=== PATIENT | female | born 1955 | race Caucasian/White ===

== ENCOUNTER → 2017-02-20 10:42 | Outpatient (CLI) | payer MEDICARE ==
[2015-10-01 11:32] VITALS: BMI 41.2
[~2017-02-20 10:42] MED LIST: ASPIRIN EC81 M1 PO; ATIVAN1 MG PO; BYSTOLIC5 MG PO; ELIQUIS2.5 MG PO; ESTRACE1 MG PO; FISH OIL 1,0001 CA1 PO; FLAXSEED OIL1000 MG PO; HYDROCODONE-APA1 TAB PO; LEXAPRO20 MG PO; MELATONIN 3 MG1 TAB PO; NAPROSYN500 MG PO; OYSCO 500+D TAB1 TAB PO; PERCOCET 10/3251 TA1 PO; PREVACID15 MG PO; REQUIP1 MG PO; ROBAXIN500 MG PO; STOOL SOFTENER240 MG PO; SYNTHROID150 MCG PO; ZOCOR20 MG PO
== END | disposition home or self-care (01) ==
LOC: D.MRI 10:42
DX: M87.9 Osteonecrosis, unspecified (principal)

== ENCOUNTER → 2017-05-27 14:21 | Outpatient (CLI) | payer MEDICARE ==
[2015-10-01 11:32] VITALS: BMI 41.2
== END | disposition home or self-care (01) ==
LOC: D.MRI 14:21
DX: D49.7 Neoplasm of unspecified behavior of endocrine glands and other parts of nervous system (principal)

== ENCOUNTER → 2017-07-10 13:12 | Outpatient (CLI) | payer MEDICARE ==
[2015-10-01 11:32] VITALS: BMI 41.2
== END | disposition home or self-care (01) ==
LOC: D.MRI 13:12
DX: M75.101 Unspecified rotator cuff tear or rupture of right shoulder, not specified as traumatic (principal)

== ENCOUNTER 2017-07-30 15:28 | Emergency (ER) | payer MEDICARE ==
[2015-10-01 11:32] VITALS: BMI 41.2
== END 2017-07-30 17:00 | disposition home or self-care (01) ==
LOC: D.ER 15:28
DX: M16.12 Unilateral primary osteoarthritis, left hip (principal); E24.9 Cushing's syndrome, unspecified

== ENCOUNTER 2017-09-25 15:31 | Emergency (ER) | payer MEDICARE ==
[2015-10-01 11:32] VITALS: BMI 41.2
== END 2017-09-25 17:34 | disposition home or self-care (01) ==
LOC: D.ER 15:31
DX: S70.12XA Contusion of left thigh, initial encounter (principal); W19.XXXA Unspecified fall, initial encounter; Y93.89 Activity, other specified; Y92.019 Unspecified place in single-family (private) house as the place of occurrence of the external cause; E24.9 Cushing's syndrome, unspecified

== ENCOUNTER → 2017-11-24 14:34 | Outpatient (CLI) | payer MEDICARE ==
[2015-10-01 11:32] VITALS: BMI 41.2
== END | disposition home or self-care (01) ==
LOC: D.MRI 14:34
DX: D33.2 Benign neoplasm of brain, unspecified (principal)

== ENCOUNTER → 2018-11-09 08:12 | Outpatient (CLI) | payer MEDICARE ==
[2015-10-01 11:32] VITALS: BMI 41.2
== END | disposition home or self-care (01) ==
LOC: D.NM 08:12
PROVIDERS: ATTEND Clinical Nurse Specialist Family Health
DX: Z96.641 Presence of right artificial hip joint (principal)

== ENCOUNTER → 2018-12-17 08:09 | Outpatient (CLI) | payer MEDICARE ==
[2015-10-01 11:32] VITALS: BMI 41.2
== END | disposition home or self-care (01) ==
LOC: D.MRI 08:09
PROVIDERS: ATTEND Emergency Medicine
DX: M54.16 Radiculopathy, lumbar region (principal)

== ENCOUNTER → 2020-01-25 09:06 | Outpatient (CLI) | payer MEDICARE ==
[2015-10-01 11:32] VITALS: BMI 41.2
== END | disposition home or self-care (01) ==
LOC: D.US 09:06
PROVIDERS: ATTEND Internal Medicine Cardiovascular Disease
DX: I70.213 Atherosclerosis of native arteries of extremities with intermittent claudication, bilateral legs (principal)

== ENCOUNTER → 2020-06-26 12:49 | Outpatient (CLI) | payer MEDICARE ==
[2015-10-01 11:32] VITALS: BMI 41.2
== END | disposition home or self-care (01) ==
LOC: D.MRI 12:49
PROVIDERS: ATTEND Internal Medicine Endocrinology, Diabetes & Metabolism
DX: D35.2 Benign neoplasm of pituitary gland (principal)

== ENCOUNTER → 2021-01-24 15:33 | Outpatient (CLI) | payer MEDICARE ==
[2015-10-01 11:32] VITALS: BMI 41.2
== END | disposition home or self-care (01) ==
LOC: D.US 15:30
PROVIDERS: ATTEND Registered Nurse Emergency
DX: M79.605 Pain in left leg (principal)

== ENCOUNTER → 2021-02-01 14:54 | Outpatient (CLI) | payer MEDICARE ==
[2015-10-01 11:32] VITALS: BMI 41.2
== END | disposition home or self-care (01) ==
LOC: D.MRI 14:54
PROVIDERS: ATTEND Emergency Medicine
DX: M25.562 Pain in left knee (principal)

== ENCOUNTER → 2021-03-04 10:36 | Outpatient (CLI) | payer MEDICARE ==
[2015-10-01 11:32] VITALS: BMI 41.2
== END | disposition home or self-care (01) ==
LOC: D.HCCECHO 10:36
PROVIDERS: ATTEND Internal Medicine Cardiovascular Disease
DX: I10 Essential (primary) hypertension (principal)